=== PATIENT | female | born 1935 | race Caucasian/White ===

== ENCOUNTER 2017-04-08 03:58 | Emergency (ER) | payer MEDICARE, OTHER ==
[2017-04-08] MEDS ORDERED: Sodium Chloride 0.9% 10 ML Syringe FLUSH PRN (04:08)
[2017-04-08] MEDS ORDERED: Albuterol/Ipratropium 3.0-0.5 MG/3 ML Neb Soln NEB ONE (04:17)
[2017-04-08] MEDS ORDERED: methylPREDNISolone Sodium Succinate 125 MG/2 ML SDV IM ONE (04:17)
[2017-04-08] MEDS ORDERED: methylPREDNISolone Sodium Succinate 125 MG/2 ML SDV IV ONE (04:27)
[2017-04-08] MEDS ORDERED: Piperacillin/Tazobactam 4.5 GM in Sodium Chloride 0.9% 100 ML IV ONE (04:28)
[2017-04-08] MEDS ORDERED: Ciprofloxacin in D5W 400 MG in Premix Bag 1 BAG IV ONE ×2 (04:28)
--- NOTE | 2017-04-08 05:04 | EDM.PDOC ---
ED HPI GENERAL MEDICAL PROBLEM - General Chief Complaint: Cardiovascular Problem Stated Complaint: Respiratory Distress Time Seen by Provider: 04/08/17 03:59 Source of Information: Reports: Patient, EMS, Family History Limitations: Reports: Respiratory Distress - History of Present Illness INITIAL COMMENTS - FREE TEXT/NARRATIVE: Pt. presents to ER via EMS from [place] with shortness of breath, acute on chronic, starting at approx. 1800 this evening. Pt. daughter feels that the pt. aspirated while eating ice cream. The pt. has a history of aspiration pneumonia in December requiring a hospital stay at [facility]. Pt. is currently on home O2 at 3L/min. She has a history of asthma and COPD. EMS found pt. to be in severe respiratory distress and started the pt. on CPAP and was given a duoneb. Pt. O2 sat. increased from low 80s to high 90s on CPAP. She remained normotensive during transport. Onset: Today Onset Date: 04/07/17 Onset Time: 18:00 - Related Data Allergies Allergy/AdvReac Type Severity Reaction Status Date / Time aspirin Allergy Other Verified 04/08/17 04:51 celecoxib [From Celebrex] Allergy Other Verified 04/08/17 04:51 fexofenadine [From Lela-D] Allergy Nausea and Verified 04/08/17 04:51 Vomiting hydrochlorothiazide Allergy Other Verified 04/08/17 04:51 pseudoephedrine Allergy Nausea and Verified 04/08/17 04:51 [From Lela-D] Vomiting sulfamethoxazole Allergy Shortness Verified 04/08/17 04:51 [From Bactrim] of Breath trimethoprim [From Bactrim] Allergy Shortness Verified 04/08/17 04:51 of Breath ED ROS GENERAL - Review of Systems Review Of Systems: See Below Constitutional: Reports: No Symptoms HEENT: Reports: No Symptoms Respiratory: Reports: Shortness of Breath (Worsening dyspnea after eating at approx. 1800.) Cardiovascular: Reports: No Symptoms Endocrine: Reports: No Symptoms GI/Abdominal: Reports: No Symptoms : Reports: No Symptoms Musculoskeletal: Reports: No Symptoms Skin: Reports: Mottled, Pallor Neurological: Reports: No Symptoms Psychiatric: Reports: No Symptoms Hematologic/Lymphatic: Reports: No Symptoms Immunologic: Reports: No Symptoms ED EXAM, GENERAL - Physical Exam Exam: See Below Exam Limited By: Respiratory Distress General Appearance: Alert, Severe Distress Ears: Normal External Exam Nose: Normal Inspection, No Blood Throat/Mouth: Normal Inspection Head: Atraumatic, Normocephalic Neck: Normal Inspection, Supple, Non-Tender Respiratory/Chest: Chest Non-Tender, Decreased Breath Sounds, Rhonchi, Wheezing (severe respiratory disress with diminished lung sounds on the left.), Prolonged Expiration GI/Abdominal: Soft, Non-Tender, No Organomegaly Back Exam: Normal Inspection Extremities: Normal Inspection Neurological: Alert, Oriented, CN II-XII Intact, Normal Cognition Psychiatric: Normal Affect, Anxious Skin Exam: Warm, Dry, Intact Lymphatic: No Adenopathy EKG INTERPRETATION Rhythm: NSR [place]: Normal P-Wave: Present QRS: Normal Course - Orders/Labs/Meds Orders: Active Orders 24 hr Category Date Time Status BIPAP Adult [RT BiPAP/CPAP] [RC] ASDIRECTED Care 04/08/17 04:32 Ordered EKG Documentation Completion [RC] STAT Care 04/08/17 04:09 Ordered RT Aerosol Therapy [RC] ASDIRECTED Care 04/08/17 04:18 Ordered Chest 1V Frontal [CR] Stat Exams 04/08/17 04:09 Ordered ABG [BLOOD GAS ARTERIAL] [BG] Stat Lab 04/08/17 04:25 Ordered CBC WITH AUTO DIFF [HEME] Stat Lab 04/08/17 04:08 Ordered CK W CKMB [CHEM] Stat Lab 04/08/17 04:10 Ordered COMPREHENSIVE METABOLIC PN,CMP [CHEM] Stat Lab 04/08/17 04:08 Ordered CRP [C-REACTIVE PROTEIN] [CHEM] Stat Lab 04/08/17 04:10 Ordered CULTURE BLOOD [BC] Stat Lab 04/08/17 04:10 Ordered CULTURE BLOOD [BC] Stat Lab 04/08/17 04:10 Ordered D Dimer [D-DIMER QUANTITATIVE] [COAG] Stat Lab 04/08/17 04:09 Ordered INR,PT,PROTHROMBIN TIME [COAG] Stat Lab 04/08/17 04:08 Ordered LACTIC ACID [CHEM] Stat Lab 04/08/17 04:09 Ordered TROPONIN I [CHEM] Stat Lab 04/08/17 04:08 Ordered TSH ULTRASENSITIVE [CHEM] Stat Lab 04/08/17 04:09 Ordered Ciprofloxacin in D5W [Cipro in D5W 400 MG/200 ML] 400 Med 04/08/17 04:28 Ordered mg Premix Bag 1 bag IV ONETIME Blood Culture x2 Reflex Set [OM.PC] Stat Oth 04/08/17 04:10 Ordered Peripheral IV Insertion Adult [OM.PC] Routine Oth 04/08/17 04:10 Ordered Medication Orders Ciprofloxacin/Dextrose 400 mg/ (Premix) 200 mls @ 200 mls/hr IV ONETIME ONE Stop: 04/08/17 05:27 Meds: Medications Generic Name Dose Route Start Last Admin Trade Name Freq PRN Reason Stop Dose Admin Ciprofloxacin/Dextrose 400 mg/ 200 mls @ 200 mls/hr 04/08/17 04:28 Premix IV 04/08/17 05:27 ONETIME ONE Discontinued Medications Generic Name Dose Route Start Last Admin Trade Name Freq PRN Reason Stop Dose Admin Albuterol/Ipratropium 3 ml 04/08/17 04:17 Duoneb 3.0-0.5 Mg/3 Ml NEB 04/08/17 04:18 ONETIME ONE Piperacillin Sod/Tazobactam 100 mls @ 200 mls/hr 04/08/17 04:28 04/08/17 04: 40 Sod 4.5 gm/ Sodium Chloride IV 04/08/17 04:57 200 mls/hr ONETIME ONE Administration Methylprednisolone Sodium Succinate 125 mg 04/08/17 04:17 04/08/17 04:49 Solu-Medrol IM 04/08/17 04:18 Not Given ONETIME ONE Methylprednisolone Sodium Succinate 125 mg 04/08/17 04:27 04/08/17 04:32 Solu-Medrol IV 04/08/17 04:28 125 mg ONETIME ONE Administration Sodium Chloride 10 ml 04/08/17 04:08 Saline Flush FLUSH ASDIRECTED PRN Keep Vein Open - Radiology Interpretation Free Text/Narrative:: Chest x-ray revealed LLL infiltrate. - Re-Assessments/Exams Free Text/Narrative Re-Assessment/Exam: Pt. respiratory status improved in BiPAP. Was also started in Cipro 400mg IV at Zosyn 4.5gm IV. Maintaining O2 saturations in the mid to high 90s on BiPAP with 30% FiO2 at 10/5. 04/08/17 05:18 Departure - Departure Time of Disposition: 05:21 Disposition: DC/Tfer to Acute Hospital 02 Reason for Transfer *Q: Other Condition: Serious Clinical Impression: Aspiration pneumonia, Respiratory failure Forms: ED Department Discharge, Interfacility Transfer EMTALA - Problem List & Annotations (1) Aspiration pneumonia SNOMED Code(s): 281991352 Code(s): J69.0 - PNEUMONITIS DUE TO INHALATION OF FOOD AND VOMIT Status: Acute Current Visit: Yes (2) Respiratory failure SNOMED Code(s): 827469094 Code(s): J96.90 - RESPIRATORY FAILURE, UNSP, UNSP W HYPOXIA OR HYPERCAPNIA Status: Acute Current Visit: Yes - My Orders Last 24 Hours: My Active Orders 04/08/17 04:08 CBC WITH AUTO DIFF [HEME] Stat COMPREHENSIVE METABOLIC PN,CMP [CHEM] Stat INR,PT,PROTHROMBIN TIME [COAG] Stat TROPONIN I [CHEM] Stat 04/08/17 04:09 EKG Documentation Completion [RC] STAT Chest 1V Frontal [CR] Stat D Dimer [D-DIMER QUANTITATIVE] [COAG] Stat LACTIC ACID [CHEM] Stat TSH ULTRASENSITIVE [CHEM] Stat 04/08/17 04:10 CK W CKMB [CHEM] Stat CRP [C-REACTIVE PROTEIN] [CHEM] Stat CULTURE BLOOD [BC] Stat CULTURE BLOOD [BC] Stat Blood Culture x2 Reflex Set [OM.PC] Stat Peripheral IV Insertion Adult [OM.PC] Routine 04/08/17 04:18 RT Aerosol Therapy [RC] ASDIRECTED 04/08/17 04:25 ABG [BLOOD GAS ARTERIAL] [BG] Stat 04/08/17 04:28 Ciprofloxacin in D5W [Cipro in D5W 400 MG/200 ML] 400 mg Premix Bag 1 bag IV ONETIME 04/08/17 04:32 BIPAP Adult [RT BiPAP/CPAP] [RC] ASDIRECTED - Assessment/Plan Last 24 Hours: My Active Orders 04/08/17 04:08 CBC WITH AUTO DIFF [HEME] Stat COMPREHENSIVE METABOLIC PN,CMP [CHEM] Stat INR,PT,PROTHROMBIN TIME [COAG] Stat TROPONIN I [CHEM] Stat 04/08/17 04:09 EKG Documentation Completion [RC] STAT Chest 1V Frontal [CR] Stat D Dimer [D-DIMER QUANTITATIVE] [COAG] Stat LACTIC ACID [CHEM] Stat TSH ULTRASENSITIVE [CHEM] Stat 04/08/17 04:10 CK W CKMB [CHEM] Stat CRP [C-REACTIVE PROTEIN] [CHEM] Stat CULTURE BLOOD [BC] Stat CULTURE BLOOD [BC] Stat Blood Culture x2 Reflex Set [OM.PC] Stat Peripheral IV Insertion Adult [OM.PC] Routine 04/08/17 04:18 RT Aerosol Therapy [RC] ASDIRECTED 04/08/17 04:25 ABG [BLOOD GAS ARTERIAL] [BG] Stat 04/08/17 04:28 Ciprofloxacin in D5W [Cipro in D5W 400 MG/200 ML] 400 mg Premix Bag 1 bag IV ONETIME 04/08/17 04:32 BIPAP Adult [RT BiPAP/CPAP] [RC] ASDIRECTED Assessment:: 1. Acute Respiratory Failure 2. Aspiration pneumonia Plan: Transfer to [facility] PCU via [facility] ground ambulance. Dr. Coombs is accepting hospitalist. Pt. is code level 1 according to daughter, and wants intubation "as long as I won't be on it forever".
[2017-04-08 05:11] LABS: CHLORIDE,CL 100 mmol/L (98-107); SODIUM,NA 141 mmol/L (136-145)
[2017-04-08 05:41] VITALS: BP 138/81
== END 2017-04-08 06:19 | disposition short-term general hospital (02) ==
LOC: VM.ED 03:58
DX: J96.90 Respiratory failure, unspecified, unspecified whether with hypoxia or hypercapnia (principal); J69.0 Pneumonitis due to inhalation of food and vomit; J44.9 Chronic obstructive pulmonary disease, unspecified; Z88.8 Allergy status to other drugs, medicaments and biological substances; Z88.1 Allergy status to other antibiotic agents; Z88.2 Allergy status to sulfonamides; Z88.5 Allergy status to narcotic agent
CPT/HCPCS: 36415; 71010; 80053; 82550; 82553; 82803; 83605; 84443; 84484; 85025; 85379; 85610; 86140; 87040; 94660; 96365; 96367; 96375; 99285; J0744; J2543; J2930; J7050; 99284-GF